=== PATIENT | female | born 1930 | race Caucasian/White ===

== ENCOUNTER 2016-08-20 12:50 | Outpatient (CLI) | payer MEDICARE, OTHER | END 2016-08-20 12:51 | disposition home or self-care (01) | DX: M16.0 Bilateral primary osteoarthritis of hip (principal) ==

== ENCOUNTER 2016-08-31 12:14 | Outpatient (CLI) | payer MEDICARE, OTHER | END 2016-08-31 12:15 | disposition home or self-care (01) | DX: M16.0 Bilateral primary osteoarthritis of hip (principal); S76.311A Strain of muscle, fascia and tendon of the posterior muscle group at thigh level, right thigh, initial encounter; M51.37 Other intervertebral disc degeneration, lumbosacral region; K57.30 Diverticulosis of large intestine without perforation or abscess without bleeding; Z91.81 History of falling; R60.0 Localized edema ==

== ENCOUNTER 2016-09-17 08:29 | Outpatient (CLI) | payer MEDICARE, OTHER | END 2016-09-17 08:30 | disposition home or self-care (01) | DX: E83.119 Hemochromatosis, unspecified (principal); E03.9 Hypothyroidism, unspecified ==

== ENCOUNTER 2017-01-15 12:03 | Outpatient (CLI) | payer MEDICARE, OTHER | END 2017-01-15 12:04 | disposition critical access hospital (66) | LOC: EMS 12:03 | PROVIDERS: ATTEND Surgery | DX: S01.01XA Laceration without foreign body of scalp, initial encounter (principal); M54.5 Low back pain; R20.0 Anesthesia of skin; W01.198A Fall on same level from slipping, tripping and stumbling with subsequent striking against other object, initial encounter; Y92.009 Unspecified place in unspecified non-institutional (private) residence as the place of occurrence of the external cause | CPT/HCPCS: A0425; A0429 ==

== ENCOUNTER 2017-01-15 12:55 | Emergency (ER) | payer MEDICARE, OTHER ==
[2017-01-15 13:04] VITALS: BP 132/79
[2017-01-15] MEDS ORDERED: ACETAMINOPHEN 325 MG TABLET PO STA (13:04)
[2017-01-15] MEDS ORDERED: ACETAMINOPHEN 325 MG TABLET PO ONE (13:09)
[2017-01-15 13:38] LABS: BASOPHILS # (AUTO) 0.1 10^3/uL (0.0-0.1); BASOPHILS % (AUTO) 0.8 %; EOSINOPHILS % (AUTO) 0.5 %; HCT - HEMATOCRIT 45.5 % (37.0-47.0); LYMPHOCYTES # (AUTO) 1.2 10^3/uL (1.5-3.5); LYMPHOCYTES % (AUTO) 14.5 %; MEAN CORPUSCULAR HEMOGLOBIN 37.5 pg (27.0-31.0); MEAN CORPUSCULAR HGB CONC 35.1 g/dL (32.0-36.0); MEAN CORPUSCULAR VOLUME 106.9 fL (81.0-99.0); MEAN PLATELET VOLUME 7.7 fL (7.9-10.8); MONOCYTES # (AUTO) 1.1 10^3/uL (0.0-1.0); MONOCYTES % (AUTO) 13.1 %; NEUTROPHILS # (AUTO) 5.7 10^3/uL (1.5-6.6); NEUTROPHILS % (AUTO) 71.1 %; RED BLOOD COUNT 4.25 10^6/uL (4.20-5.40); RED CELL DISTRIBUTION WIDTH 12.9 % (12.0-15.0); UNCORRECTED WHITE BLOOD COUNT 8.1 x10^3/uL; WHITE BLOOD COUNT 8.1 x10^3/uL (4.8-10.8)
[2017-01-15 13:47] LABS: ALBUMIN/GLOBULIN RATIO 1.4 (1.0-2.2); BILIRUBIN,TOTAL 1.2 mg/dL (0.2-1.0); CALCIUM 10.9 mg/dL (8.5-10.3); CREATININE 0.7 mg/dL (0.4-1.0); MAGNESIUM 1.4 mg/dL (1.7-2.8); POTASSIUM 3.6 mmol/L (3.5-5.0); TOTAL PROTEIN 7.8 g/dL (6.7-8.2)
--- NOTE | 2017-01-15 14:13 | CT Preliminary Report ---
Exam: CT Head W/O IMPRESSION: Generalized age-related chronic changes without evidence of acute intracranial abnormalit y when compared with 02/10/2016. [facility] SITE ID: [id number]
--- NOTE | 2017-01-15 14:15 | CT Report ---
EXAM: CT HEAD EXAM DATE: 01/15/2017 01:54 PM. CLINICAL HISTORY: Fell last night, struck head. COMPARISON: 02/10/2016 TECHNIQUE: Multiaxial CT images were obtained from the foramen magnum to the vertex. IV contrast: Non e. Reformats: Coronal. In accordance with CT protocol optimization, one or more of the following dose reduction techniques w ere utilized for this exam: automated exposure control, adjustment of mA and/or KV based on patient s ize, or use of iterative reconstructive technique. FINDINGS: Parenchyma: No intraparenchymal hemorrhage. No evidence of mass, midline shift, or CT findings of acu te infarction. Hamilton-white differentiation is distinct. Extraaxial Spaces: Normal for age. No subdural or epidural collections identified. Ventricles: The ventricles and cortical sulci are enlarged, consistent with age-related tissue loss. Sinuses: Imaged paranasal sinuses, orbits, and mastoids show no significant abnormality. Bones: No evidence of fracture or calvarial defect. Other: Diffuse chronic microangiopathic white matter changes are evident. IMPRESSION: Generalized age-related chronic changes without evidence of acute intracranial abnormalit y when compared with 02/10/2016. [facility] Referring Provider Line: [phone] SITE ID: [id number]
--- NOTE | 2017-01-15 14:24 | CT Preliminary Report ---
Exam: CT Cervical Spine W/O IMPRESSION: Multilevel degenerative and postsurgical change cervical spine without evidence of acute fracture, acute malalignment, or prevertebral soft tissue swelling when compared with 02/10/2016. [facility] SITE ID: [id number]
--- NOTE | 2017-01-15 14:26 | CT Report ---
EXAM: CT CERVICAL SPINE WITHOUT CONTRAST DATE: 01/15/2017 01:54 PM HISTORY: Fell last night with some finger numbness. COMPARISONS: 02/10/2016 TECHNIQUE: Thin-section axial images were acquired of the cervical spine without contrast. Post-proce ssing: Coronal and sagittal reformats. Other: None. In accordance with CT protocol optimization, one or more of the following dose reduction techniques w ere utilized for this exam: automated exposure control, adjustment of mA and/or KV based on patient s ize, or use of iterative reconstructive technique. FINDINGS: Alignment: Normal. No scoliosis or spondylolisthesis. Bones: No acute fracture or bone lesion. Interspace Levels/Facets: C1-C2 through C7-T1: Status post anterior interbody C4-C5 fusion with plate and screw stabilization. Advanced disk space narrowing C5-C6 and C6-C7. Multilevel degenerative facet joint arthropathy. Musculature: Normal. No fatty atrophy. Other: The paravertebral and prevertebral soft tissues are normal. IMPRESSION: Multilevel degenerative and postsurgical change cervical spine without evidence of acute fracture, acute malalignment, or prevertebral soft tissue swelling when compared with 02/10/2016. [facility] Referring Provider Line: [phone] SITE ID: [id number]
--- NOTE | 2017-01-15 14:31 | CT Preliminary Report ---
Exam: CT Pelvis W/O IMPRESSION: 1. Mild bilateral hip osteoarthritis. 2. No acute fracture identified. [facility] SITE ID: [id number]
--- NOTE | 2017-01-15 14:55 | CT Report ---
EXAM: CT BONY PELVIS WITHOUT CONTRAST EXAM DATE: 01/15/2017 01:54 PM. CLINICAL HISTORY: Fell last night with sacral/tailbone pain. COMPARISON: CT 10/29/2014. TECHNIQUE: Thin-section axial images were acquired of the pelvis without contrast. Post-processing: C oronal and sagittal reformats. Other: None. In accordance with CT protocol optimization, one or more of the following dose reduction techniques w ere utilized for this exam: automated exposure control, adjustment of mA and/or KV based on patient s ize, or use of iterative reconstructive technique. FINDINGS: Bones and Articular Surfaces: Mild bilateral hip joint space narrowing with marginal osteophyte forma tion. There is some degree of chondrocalcinosis in the bilateral hip joints. Sacroiliac joints demons trate mild degree of subcortical sclerosis and tiny marginal osteophytes. No acute fracture identifie d. Sacrum and coccyx appear intact. Severe L4-L5 degenerative facet arthropathy with grade 1 spondylo listhesis partially visualized. Soft Tissues: Moderate enthesophyte formation adjacent to the ischial tuberosities, left greater than right greater trochanters. Irregular dystrophic calcifications involving the right greater than left proximal hamstrings musculature. No additional musculotendinous abnormality. Miscellaneous: 2.3 cm gallstone partially visualized. Dense calcified plaque in the iliac vessels. Si gmoid diverticulosis without diverticulitis. IMPRESSION: 1. Mild bilateral hip osteoarthritis. 2. No acute fracture identified. [facility] Referring Provider Line: [phone] SITE ID: [id number]
--- NOTE | 2017-01-15 15:04 | ED Physician Documentation ---
PD HPI Fall - Stated complaint Stated Complaint: GLF - Chief complaint Chief Complaint: General - History obtained from History obtained from: Patient, EMS - History of Present Illness Mechanism of injury: Slipped (she says she fell down beside bed when got up to close window. denies feeling dizzy nor lightheaded prior to the fall. Struck back of head and tailbone area.) Fall distance: Standing position Where injury occurred: Home Timing - onset: Last night Injury(ies) location: Head, Neck, Back (tailbone sacral area), Other (both medial knees with bruising but no bony tenderness.) Associated symptoms: Other (scalp laceration that had a lot pool of blood on carpet this morning. She says she got herself back up by climbing with knees and got bruised medial knees as well, but not hurting to touch nor walk.). No: LOC, AMS Worsens with: Movement, Palpation Contributing factors: Intoxicated (denies excess alcohol use, but does have smell of alcohol on breath with last intake stated about midnight or so. Denies intoxication contributing to the fall.). No: Anticoagulated Recently seen: Not recently seen Review of Systems Constitutional: denies: Fever, Chills Throat: denies: Dental pain / toothache, Sore throat Cardiac: denies: Chest pain / pressure, Palpitations Respiratory: denies: Dyspnea, Cough Musculoskeletal: reports: Back pain (sacral/tailbone area) Neurologic: reports: Headache, Head injury (occiput area). denies: Focal weakness, Numbness, Difficulty speaking PD PAST MEDICAL HISTORY - Past Medical History Past Medical History: Yes Cardiovascular: Hypertension Respiratory: None Neuro: None Endocrine/Autoimmune: None GI: Diverticulitis MEDICAL CHEMIST: Ectopic , Ovarian cysts : None HEENT: None Musculoskeletal: Osteoarthritis, Gout Derm: None - Past Surgical History Past Surgical History: Yes General: Appendectomy Ortho: Spine surgery /MEDICAL CHEMIST: Hysterectomy, Oophrectomy HEENT: Tonsil/Adenoidectomy - Present Medications Home Medications: Ambulatory Orders Medication Instructions Recorded Confirmed Levothyroxine Sodium [Synthroid] 112 mcg PO DAILY 03/31/13 01/13/17 Metoprolol Succinate [Toprol Xl] 25 mg PO DAILY 03/31/13 01/13/17 Multivitamin [Multivitamins] 1 each PO DAILY 03/31/13 01/13/17 amLODIPine [Norvasc] 10 mg PO DAILY 03/31/13 01/13/17 Allopurinol 100 mg PO DAILY 09/27/13 01/13/17 Aspirin [Aspir 81] 325 mg PO DAILY 01/24/14 01/13/17 Zolpidem Tartrate [Zolpidem 5 mg PO DAILY PRN 02/10/16 01/13/17 Tartrate] Cholecalciferol (Vitamin D3) 1,000 unit PO DAILY 05/27/16 01/13/17 [Vitamin D3] Magnesium Citrate 135 mg PO DAILY 05/27/16 01/13/17 Potassium Chloride 10 meq PO DAILY 05/27/16 01/13/17 - Allergies Allergies/Adverse Reactions: Allergies Allergy/AdvReac Type Severity Reaction Status Date / Time lisinopril Allergy Respiratory Verified 01/15/17 13:08 Penicillins Allergy Rash Verified 01/15/17 13:08 atenolol AdvReac Dizziness Verified 01/15/17 13:08 sertraline HCl * AdvReac Dizziness Verified 01/15/17 13:08 [From Zoloft] - Social History Does the pt smoke?: Yes Smoking Status: Current every day smoker Does the pt drink ETOH?: Yes Does the pt have substance abuse?: No - Family History Family history: reports: Non contributory - Immunizations Immunizations are current?: Yes PD ED PE NORMAL - Vitals Vital signs reviewed: Yes - General General: No acute distress, Well developed/nourished, Other - HEENT HEENT: EOMI (d), Pharynx benign, Other (occiput with 1.5 cm laceration that looks like it was st) - Neck Neck: Supple, no meningeal sign - Cardiac Cardiac: RRR, No murmur - Respiratory Respiratory: Clear bilaterally - Abdomen Abdomen: Normal bowel sounds, Soft, Non tender - Female Female : Deferred - Rectal Rectal: Deferred - Back Back: No CVA TTP, Other (tender in lower sacral/tailbone area without deformity. ) - Extremities Extremities: No edema, No calf tenderness / cord - Neuro Neuro: Alert and oriented X 3, No motor deficit, No sensory deficit Results - Vitals Vitals: Oxygen O2 Source Room air - Labs Labs: Laboratory Tests 01/15/17 01/15/17 13:18 13:18 WBC 8.1 RBC 4.25 Hgb 16.0 Hct 45.5 MCV 106.9 H MCH 37.5 H MCHC 35.1 RDW 12.9 Plt Count 177 MPV 7.7 L Neut # 5.7 Lymph # 1.2 L Hartley # 1.1 H Eos # 0.0 Baso # 0.1 Absolute Nucleated RBC 0.00 Nucleated RBCs 0.0 Sodium 139 Potassium 3.6 Chloride 101 Carbon Dioxide 23 Anion Gap 15.0 H BUN 13 Creatinine 0.7 Estimated GFR (MDRD) 80 L Glucose 133 H Calcium 10.9 H Magnesium 1.4 L Total Bilirubin 1.2 H AST 88 H ALT 39 Alkaline Phosphatase 92 Total Creatine Kinase 257 Total Protein 7.8 Albumin 4.5 Globulin 3.3 Albumin/Globulin Ratio 1.4 Lipase 44 Ethyl Alcohol 28.4 - Rads (name of study) scans Head, enck, pelvis Radiology: Prelim report reviewed (all negative for fractures. ) Procedures - Laceration (location) occiput Length in cm: 1.5 Wound type: Linear Neurovascular status: Sensory intact, Motor intact, Other (mild bleeding at time of cleaning) Anesthesia: Lidocaine 1% with epi Wound Preparation: Irrigated copiously NS Skin layer closure: Nylon, Interrupted, Size #-0 - enter number (4), Sutures - enter # (3) Other: Patient tolerated well, No complications, Neurovascular intact, Dressing applied, Tetanus UTD Complexity: Simple PD MEDICAL DECISION MAKING - ED course Complexity details: reviewed results, re-evaluated patient (looks okay. No fractures. Scalp wound sutured. ), considered differential, d/w patient Departure - Departure Disposition: 01 Home, Self Care Clinical Impression: Fall from slip, trip, or stumble Qualifiers: Encounter type: initial encounter Qualified Code(s): W01.0XXA - Fall on same level from slipping, tripping and stumbling without subsequent striking against object, initial encounter Scalp laceration Qualifiers: Encounter type: initial encounter Qualified Code(s): S01.01XA - Laceration without foreign body of scalp, initial encounter Sacral contusion Qualifiers: Encounter type: initial encounter Qualified Code(s): S30.0XXA - Contusion of lower back and pelvis, initial encounter Traumatic ecchymosis of knee Qualifiers: Encounter type: initial encounter Laterality: unspecified laterality Qualified Code(s): S80.00XA - Contusion of unspecified knee, initial encounter Condition: Stable Record reviewed to determine appropriate education?: Yes Instructions: ED Laceration Scalp Stitch Or Stap, ED Contusion Sacrum Coccyx Follow-Up: Gus Ocasio MD [Primary Care Provider] - Comments: It is okay to wash and shower. Clean off the wound twice a day with soap and water, or peroxide and water. Apply some antibiotic ointment to it to keep it moist. Also to watch for signs of infection such as purulence, redness or increasing pain. Return to your primary care or the ER at the specified time for suture removal. Suture removal in 8-10 days. Tylenol 4 times a day as needed for pain. There is no bleeding inside the head vault and no signs of fractures of your neck or pelvis. Discharge Date/Time: 01/15/17 15:30
== END 2017-01-15 15:30 | disposition home or self-care (01) ==
LOC: EDUNIT# → ED 12:55
DX: S01.01XA Laceration without foreign body of scalp, initial encounter (principal); S30.0XXA Contusion of lower back and pelvis, initial encounter; S80.00XA Contusion of unspecified knee, initial encounter; W18.30XA Fall on same level, unspecified, initial encounter; W22.8XXA Striking against or struck by other objects, initial encounter; Y92.009 Unspecified place in unspecified non-institutional (private) residence as the place of occurrence of the external cause; I10 Essential (primary) hypertension; F17.200 Nicotine dependence, unspecified, uncomplicated; Z79.82 Long term (current) use of aspirin
CPT/HCPCS: 12001; 36415; 70450; 72125; 72192; 80053; 82550; 83690; 83735; 85025; 99283; A9270; G0480; 80320

== ENCOUNTER 2017-03-06 08:00 | Outpatient (CLI) | payer MEDICARE, OTHER ==
[2017-03-06 19:50] LABS: ALBUMIN/GLOBULIN RATIO 1.3 (1.0-2.2); BILIRUBIN,TOTAL 0.9 mg/dL (0.2-1.0); CALCIUM 9.7 mg/dL (8.5-10.3); CREATININE 0.6 mg/dL (0.4-1.0); POTASSIUM 3.8 mmol/L (3.5-5.0); TOTAL PROTEIN 7.7 g/dL (6.7-8.2)
== END 2017-03-06 08:01 | disposition home or self-care (01) ==
LOC: LAB.F 08:00
PROVIDERS: ATTEND Internal Medicine
DX: I48.2 Chronic atrial fibrillation (principal); I10 Essential (primary) hypertension; E83.119 Hemochromatosis, unspecified
CPT/HCPCS: 36415; 80053

== ENCOUNTER 2017-06-10 08:00 | Outpatient (CLI) | payer MEDICARE, OTHER | END 2017-06-10 08:01 | disposition home or self-care (01) | LOC: LAB.F 08:00 | PROVIDERS: ATTEND Internal Medicine Cardiovascular Disease | DX: E78.5 Hyperlipidemia, unspecified (principal); I10 Essential (primary) hypertension | CPT/HCPCS: 80061; 81599; 82565; 84450; 84520 ==

== ENCOUNTER 2017-06-11 07:44 | Outpatient (CLI) | payer MEDICARE, OTHER ==
[2017-06-11 11:13] LABS: BUN - BLOOD UREA NITROGEN 9 mg/dL (6-20); CHOL/HDL RATIO 2.5 (<4.4); CHOLESTEROL 179 mg/dL; CREATININE 0.6 mg/dL (0.4-1.0); GFR - MDRD 95 (>89); HDL CHOLESTEROL 71 mg/dL; LDL/HDL RATIO 1.3 (<4.4); TRIGLYCERIDES 95 mg/dL; VLDL CHOLESTEROL 19 mg/dL
[2017-06-11 11:34] LABS: CARBON DIOXIDE - CO2 20 mmol/L (21-32); CHLORIDE 102 mmol/L (101-111); POTASSIUM 3.8 mmol/L (3.5-5.0); SODIUM 136 mmol/L (135-145)
[2017-06-14 13:32] LABS: TEST RESULT REPORT
== END 2017-06-11 07:45 | disposition home or self-care (01) ==
LOC: LAB.F 07:44
PROVIDERS: ATTEND Internal Medicine Cardiovascular Disease
DX: E78.5 Hyperlipidemia, unspecified (principal); I10 Essential (primary) hypertension
CPT/HCPCS: 36415; 80051; 80061; 81599; 82172; 82565; 84450; 84520

== ENCOUNTER 2017-09-22 07:31 | Outpatient (CLI) | payer MEDICARE, OTHER ==
[2017-09-22 10:56] LABS: ALBUMIN 4.1 g/dL (3.2-5.5); ALBUMIN/GLOBULIN RATIO 1.3 (1.0-2.2); ALKALINE PHOSPHATASE 70 IU/L (42-121); ALT ALANINE AMINOTRANSFERASE 39 IU/L (10-60); AST ASPARTATE AMINOTRANSFERASE 82 IU/L (10-42); BILIRUBIN,TOTAL 1.2 mg/dL (0.2-1.0); BUN - BLOOD UREA NITROGEN 12 mg/dL (6-20); CALCIUM 9.6 mg/dL (8.5-10.3); CARBON DIOXIDE - CO2 24 mmol/L (21-32); CHLORIDE 101 mmol/L (101-111); CHOL/HDL RATIO 2.4 (<4.4); CHOLESTEROL 186 mg/dL; CREATININE 0.6 mg/dL (0.4-1.0); GFR - MDRD 95 (>89); GLUCOSE 85 mg/dL (70-100); HDL CHOLESTEROL 77 mg/dL; LDL CHOLESTEROL,CALCULATED 87 mg/dL; LDL/HDL RATIO 1.1 (<4.4); SODIUM 137 mmol/L (135-145); TOTAL PROTEIN 7.3 g/dL (6.7-8.2); VLDL CHOLESTEROL 22 mg/dL
[2017-09-22 11:05] LABS: T4 (THYROXINE) 6.18 ug/dL (6.09-12.23)
[2017-09-22 11:10] LABS: FREE T4 (FREE THYROXINE) 0.89 ng/dL (0.58-1.64)
[2017-09-22 11:15] LABS: TOTAL T3 0.95 ng/mL (0.87-1.78)
== END 2017-09-22 07:32 | disposition home or self-care (01) ==
LOC: LAB.F 07:31
PROVIDERS: ATTEND Family Medicine
DX: E03.9 Hypothyroidism, unspecified (principal); I10 Essential (primary) hypertension; E78.5 Hyperlipidemia, unspecified
CPT/HCPCS: 36415; 80053; 80061; 83721; 84436; 84439; 84443; 84480; 84482

== ENCOUNTER 2017-10-09 14:58 | Outpatient (CLI) | payer MEDICARE, OTHER ==
--- NOTE | 2017-10-10 10:55 | XRAY Report ---
THREE VIEW RIGHT FOOT: 10/09/2017 CLINICAL INDICATION: Pain. FINDINGS: AP, lateral, and oblique views of the right foot demonstrate moderate hallux valgus, with osteoarthritis. There is no evidence of acute fracture or dislocation. No radiopaque foreign body is seen in the soft tissues. IMPRESSION: MODERATE OSTEOARTHRITIS AND HALLUX VALGUS. TD: 10/10/2017 10:53
== END 2017-10-09 14:59 | disposition home or self-care (01) ==
LOC: DI.S 14:58
PROVIDERS: ATTEND Nurse Practitioner Family
DX: S99.821A Other specified injuries of right foot, initial encounter (principal); M19.071 Primary osteoarthritis, right ankle and foot; M20.11 Hallux valgus (acquired), right foot

== ENCOUNTER 2017-11-11 13:24 | Outpatient (CLI) | payer MEDICARE, OTHER | END 2017-11-11 13:25 | disposition home or self-care (01) | LOC: RT.S 13:24 | PROVIDERS: ATTEND Internal Medicine Cardiovascular Disease | DX: I48.0 Paroxysmal atrial fibrillation (principal); R00.2 Palpitations | CPT/HCPCS: 93005 ==

== ENCOUNTER 2017-11-12 07:55 | Outpatient (CLI) | payer MEDICARE, OTHER ==
[2017-11-12 11:05] LABS: CREATININE 0.7 mg/dL (0.4-1.0)
== END 2017-11-12 07:56 | disposition home or self-care (01) ==
LOC: LAB.F 07:55
PROVIDERS: ATTEND Internal Medicine Cardiovascular Disease
DX: I48.0 Paroxysmal atrial fibrillation (principal); R00.2 Palpitations
CPT/HCPCS: 36415; 80051; 82565; 84520

== ENCOUNTER 2017-12-04 13:52 | Outpatient (CLI) | payer MEDICARE, OTHER ==
[2017-12-04 18:20] LABS: CREATININE 0.6 mg/dL (0.4-1.0)
== END 2017-12-04 13:53 | disposition home or self-care (01) ==
LOC: LAB.F 13:52
PROVIDERS: ATTEND Internal Medicine Cardiovascular Disease
DX: I10 Essential (primary) hypertension (principal)
CPT/HCPCS: 36415; 80051; 82565; 84520

== ENCOUNTER 2017-12-26 07:51 | Outpatient (CLI) | payer MEDICARE, OTHER ==
[2017-12-26 12:14] LABS: CREATININE 0.5 mg/dL (0.4-1.0)
== END 2017-12-26 07:52 | disposition home or self-care (01) ==
LOC: LAB.F 07:51
PROVIDERS: ATTEND Internal Medicine Cardiovascular Disease
DX: E87.6 Hypokalemia (principal); I51.9 Heart disease, unspecified
CPT/HCPCS: 36415; 80051; 82565; 84520

== ENCOUNTER 2018-01-04 11:30 | Emergency (ER) | payer MEDICARE, OTHER ==
--- NOTE | 2018-01-04 12:33 | ED Physician Documentation ---
History of Present Illness - Stated complaint Stated Complaint: R ANKLE PX/GLF - Chief complaint Chief Complaint: Ext Problem - History obtained from History obtained from: Patient, Family - History of Present Illness Timing: Last night Pain level max: 4 Pain level now: 3 Improved by: rest Worsened by: movement - Additonal information Additional information: Patient is an 87-year-old female who states that she fell last night and injured her right lower extremity. States unable to bear weight today. Came in for evaluation. Denies pain anywhere other than her right ankle. No head injury. No headache. No neck or back pain. No abdominal pain. No chest pain. Review of Systems Constitutional: denies: Fever, Chills GI: denies: Nausea, Vomiting, Diarrhea Skin: denies: Rash Musculoskeletal: denies: Neck pain, Back pain Neurologic: denies: Headache PD PAST MEDICAL HISTORY - Past Medical History Cardiovascular: Hypertension Respiratory: None Endocrine/Autoimmune: None GI: Diverticulitis HONEYCOMB DECAPPER: Ectopic , Ovarian cysts : None HEENT: None Musculoskeletal: Osteoarthritis, Gout Derm: None - Past Surgical History Past Surgical History: Yes General: Appendectomy Ortho: Spine surgery /HONEYCOMB DECAPPER: Hysterectomy, Oophrectomy HEENT: Tonsil/Adenoidectomy - Present Medications Home Medications: Ambulatory Orders Medication Instructions Recorded Confirmed Levothyroxine Sodium [Synthroid] 112 mcg PO DAILY 03/31/13 07/07/17 Metoprolol Succinate [Toprol Xl] 25 mg PO DAILY 03/31/13 07/07/17 Multivitamin [Multivitamins] 1 each PO DAILY 03/31/13 07/07/17 amLODIPine [Norvasc] 10 mg PO DAILY 03/31/13 07/07/17 Allopurinol 100 mg PO DAILY 09/27/13 07/07/17 Aspirin [Aspir 81] 325 mg PO DAILY 01/24/14 07/07/17 Zolpidem Tartrate [Zolpidem 5 mg PO DAILY PRN 02/10/16 07/07/17 Tartrate] Cholecalciferol (Vitamin D3) 1,000 unit PO DAILY 05/27/16 07/07/17 [Vitamin D3] Magnesium Citrate 135 mg PO DAILY 05/27/16 07/07/17 Potassium Chloride 10 meq PO DAILY 05/27/16 07/07/17 - Allergies Allergies/Adverse Reactions: Allergies Allergy/AdvReac Type Severity Reaction Status Date / Time lisinopril Allergy Respiratory Verified 01/15/17 13:08 Penicillins Allergy Rash Verified 01/15/17 13:08 atenolol AdvReac Dizziness Verified 01/15/17 13:08 sertraline HCl * AdvReac Dizziness Verified 01/15/17 13:08 [From Zoloft] - Social History Does the pt smoke?: Yes Smoking Status: Current every day smoker Does the pt drink ETOH?: Yes Does the pt have substance abuse?: No - Immunizations Immunizations are current?: Yes PD ED PE NORMAL - Vitals Vital signs reviewed: Yes - General General: Alert and oriented X 3 - HEENT HEENT: Atraumatic, PERRL, Moist mucous membranes - Neck Neck: Supple, no meningeal sign, No bony TTP - Cardiac Cardiac: RRR - Respiratory Respiratory: No respiratory distress, Clear bilaterally - Abdomen Abdomen: Soft, Non tender, Non distended - Back Back: No spinal TTP - Derm Derm: Warm and dry, No rash - Extremities Extremities: Other (TTP R ankle and foot. diffuse STS and bruising. NVI. 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, No motor deficit, No sensory deficit Eye Opening: Spontaneous Motor: Obeys Commands Verbal: Oriented GCS Score: 15 - Psych Psych: Normal mood, Normal affect Results - Vitals Vitals: Vital Signs - 24 hr 01/04/18 01/04/18 01/04/18 11:34 11:48 13:40 Temperature 36.6 C Heart Rate 87 89 88 Respiratory 18 12 12 Rate Blood Pressure 117/37 L 121/78 148/77 H O2 Saturation 98 97 95 Oxygen O2 Source Room air - EKG (time done) 1146 Rate: Rate (enter#) (92) Rhythm: Paced - Rads (name of study) R foot xray Radiology: Prelim report reviewed, EMP read contemporaneously, See rad report ( normal) R ankle xray Radiology: Prelim report reviewed, EMP read contemporaneously, See rad report ( Distal fibula fracture) PD MEDICAL DECISION MAKING - ED course Complexity details: reviewed results, re-evaluated patient, considered differential, d/w patient, d/w family (son), d/w pre owned sales consultant ED course: Patient is an 87 year old female s/p fall at home. R distal fibula fracture on xray. NVI. Discussed with Dr. Hill, orthopedics and recommends walking boot and walker. Patient is tolerating this well. declines pain meds here or for home. Patient counseled regarding signs and symptoms for which I believe and urgent re -evaluation would be necessary. Patient with good understanding of and agreement to plan and is comfortable going home at this time This document was made in part using voice recognition software. While efforts are made to proofread this document, sound alike and grammatical errors may occur. - Sepsis Event Vital Signs: Vital Signs - 24 hr 01/04/18 01/04/18 01/04/18 11:34 11:48 13:40 Temperature 36.6 C Heart Rate 87 89 88 Respiratory 18 12 12 Rate Blood Pressure 117/37 L 121/78 148/77 H O2 Saturation 98 97 95 Oxygen O2 Source Room air Departure - Departure Disposition: 01 Home, Self Care Clinical Impression: Fibula fracture Qualifiers: Encounter type: initial encounter Fibula location: lateral malleolus Fracture type: closed Fracture alignment: nondisplaced Laterality: right Qualified Code(s ): S82.64XA - Nondisplaced fracture of lateral malleolus of right fibula, initial encounter for closed fracture Condition: Good Instructions: ED Fx Lower Ext Follow-Up: [facility] [Provider Group] - Within 1 week Parth Estes MD [Primary Care Provider] - Within 1 week Comments: Stay in the boot and use the walker at all times. Return if you worsen. You can use motrin or tylenol as needed for pain. Discharge Date/Time: 01/04/18 13:56
[2018-01-04 13:41] VITALS: BP 148/77
--- NOTE | 2018-01-05 09:11 | XRAY Report ---
Procedure Date: 01/04/2018 Accession Number: [id number] / [id number] Procedure: XR - Foot 3 View RT CPT Code: FULL RESULT: EXAM: RIGHT FOOT RADIOGRAPHY EXAM DATE: 01/04/2018 12:56 PM. CLINICAL HISTORY: Fall, foot/ankle pain. COMPARISON: 10/09/2017. TECHNIQUE: 3 views. FINDINGS: Bones: Distal fibular fracture as described on the ankle radiographs. No additional fracture. Joints: Great MTP joint space narrowing and productive change is similar. Stable degenerative changes of the midfoot. No subluxations. Soft Tissues: No focal soft tissue swelling. IMPRESSION: Negative right foot for acute fracture. Distal fibula fracture as described on the ankle radiographs. [facility]
--- NOTE | 2018-01-05 09:11 | XRAY Report ---
Procedure Date: 01/04/2018 Accession Number: [id number] / [id number] Procedure: XR - Ankle 3 View RT CPT Code: FULL RESULT: EXAM: RIGHT ANKLE RADIOGRAPHY EXAM DATE: 01/04/2018 12:56 PM. CLINICAL HISTORY: Fall, foot/ankle pain. COMPARISON: None. TECHNIQUE: 3 views. FINDINGS: Bones: There is an oblique fracture of the distal fibula above the level of the tibial plafond. No significant displacement. No additional fracture. Joints: No effusion. No subluxations. The ankle mortise is normally aligned. Soft Tissues: Lateral soft tissue swelling. IMPRESSION: Nondisplaced distal fibula fracture. [facility]
== END 2018-01-04 13:56 | disposition home or self-care (01) ==
LOC: ED 11:30
DX: S82.64XA Nondisplaced fracture of lateral malleolus of right fibula, initial encounter for closed fracture (principal); I10 Essential (primary) hypertension; Z79.82 Long term (current) use of aspirin; F17.200 Nicotine dependence, unspecified, uncomplicated; X50.1XXA Overexertion from prolonged static or awkward postures, initial encounter; W18.39XA Other fall on same level, initial encounter; Y92.009 Unspecified place in unspecified non-institutional (private) residence as the place of occurrence of the external cause
CPT/HCPCS: 93005; 99283

== ENCOUNTER 2018-04-08 12:56 | Outpatient (CLI) | payer MEDICARE, OTHER | END 2018-04-08 12:57 | disposition short-term general hospital (02) | LOC: EMS 12:56 | PROVIDERS: ATTEND Surgery | DX: R07.89 Other chest pain (principal); M25.512 Pain in left shoulder | CPT/HCPCS: A0425; A0427 ==

== ENCOUNTER 2018-04-14 13:04 | Outpatient (CLI) | payer MEDICARE, OTHER | END 2018-04-14 13:05 | disposition home or self-care (01) | LOC: LAB.F 13:04 | PROVIDERS: ATTEND Family Medicine | DX: D69.6 Thrombocytopenia, unspecified (principal) | CPT/HCPCS: 36415; 85049 ==

== ENCOUNTER 2018-10-26 15:18 | Outpatient (CLI) | payer MEDICARE, OTHER ==
[2018-10-26 18:44] LABS: ALBUMIN 3.7 g/dL (3.2-5.5); CALCIUM 10.6 mg/dL (8.5-10.3); TOTAL PROTEIN 7.4 g/dL (6.7-8.2)
[2018-10-26 18:48] LABS: BASOPHILS # (AUTO) 0.1 10^3/uL (0.0-0.1); BASOPHILS % (AUTO) 0.9 %; EOSINOPHILS # (AUTO) 0.1 10^3/uL (0.0-0.7); EOSINOPHILS % (AUTO) 1.3 %; HGB - HEMOGLOBIN 14.2 g/dL (12.0-16.0); LYMPHOCYTES # (AUTO) 1.9 10^3/uL (1.5-3.5); LYMPHOCYTES % (AUTO) 31.9 %; MEAN CORPUSCULAR HEMOGLOBIN 37.2 pg (27.0-31.0); MEAN CORPUSCULAR HGB CONC 33.8 g/dL (32.0-36.0); MEAN PLATELET VOLUME 8.3 fL (7.9-10.8); MONOCYTES # (AUTO) 0.8 10^3/uL (0.0-1.0); MONOCYTES % (AUTO) 13.1 %; NEUTROPHILS # (AUTO) 3.2 10^3/uL (1.5-6.6); NEUTROPHILS % (AUTO) 52.8 %; PLT - PLATELET COUNT 160 10^3/uL (130-450); RED CELL DISTRIBUTION WIDTH 13.5 % (12.0-15.0); WHITE BLOOD COUNT 6.1 x10^3/uL (4.8-10.8)
== END 2018-10-26 15:19 | disposition home or self-care (01) ==
LOC: LAB.F 15:18
PROVIDERS: ATTEND Nurse Practitioner Family
DX: R30.0 Dysuria (principal)
CPT/HCPCS: 36415; 80053; 85025

== ENCOUNTER 2018-10-27 08:00 | Outpatient (CLI) | payer MEDICARE, OTHER | END 2018-10-27 23:59 | disposition home or self-care (01) | LOC: LAB.R 08:00 | PROVIDERS: ATTEND Nurse Practitioner Family | DX: R30.0 Dysuria (principal) | CPT/HCPCS: 87086; 87181 ==

== ENCOUNTER 2018-11-02 08:25 | Outpatient (CLI) | payer MEDICARE, OTHER ==
--- NOTE | 2018-11-02 12:52 | Ultrasound Report ---
Reason: URINARY TRACT INFECTION ,SITE NOT SPECIFIED Procedure Date: 11/02/2018 Accession Number: [id number] / [id number] Procedure: US - Retroperitoneal CPT Code: FULL RESULT: EXAM: RENAL ULTRASOUND EXAM DATE: 11/02/2018 08:51 AM. CLINICAL HISTORY: Urinary tract infection, site not specified. COMPARISON: None. TECHNIQUE: Real-time scanning was performed with static images obtained. FINDINGS: Right Kidney: 10.5 cm. Normal echotexture with no stones, contour-deforming masses, or hydronephrosis. Left Kidney: 11.1 cm. A simple cyst measuring up to 3 cm was noted. Normal echotexture with no stones, solid masses, or hydronephrosis. Bladder: The right ureteral jet is clearly seen. There is the suggestion of presence of the left ureteral jet, less certain. The patient had already voided. Postvoid volume was 15 mL. Other: None. IMPRESSION: No significant postvoid residual and no urinary obstruction. [facility]
--- NOTE | 2018-11-02 13:33 | XRAY Report ---
Reason: URINARY TRACT INFECTION,SITE NOT SPECIFIED Procedure Date: 11/02/2018 Accession Number: [id number] / [id number] Procedure: XR - Abdomen 1 View X-Ray CPT Code: 11985 FULL RESULT: EXAM: ABDOMEN RADIOGRAPHY EXAM DATE: 11/02/2018 09:28 AM. CLINICAL HISTORY: Urinary tract infection, site not specified. COMPARISON: XR ACUTE ABDOMEN SERIES 10/22/2009 2:37 PM ABDOMEN/PELVIS W/O 10/29/2014 12:10 PM. TECHNIQUE: 1 view. FINDINGS: Bowel Gas Pattern: No bowel obstruction. Small to moderate volume of stool in the colon. Calcification projected over the left renal hilum again seen consistent with a vascular calcification. No calcifications are seen to suggest a ureteral or bladder calculus. Other: Lung bases are clear. Vascular calcifications. Degenerative changes. Dextroscoliosis of the lumbar spine. IMPRESSION: 1. No radiographic evidence of obstructing calculi. 2. No bowel obstruction. 3. Small to moderate volume of stool in the colon. [facility]
== END 2018-11-02 08:26 | disposition home or self-care (01) ==
LOC: DI 08:25
PROVIDERS: ATTEND Nurse Practitioner Family
DX: N39.0 Urinary tract infection, site not specified (principal)
CPT/HCPCS: 74018; 76770

== ENCOUNTER 2018-12-07 08:08 | Outpatient (CLI) | payer MEDICARE, OTHER ==
[2018-12-07 10:53] LABS: CALCIUM 10.7 mg/dL (8.5-10.3); CREATININE 0.8 mg/dL (0.4-1.0)
== END 2018-12-07 08:09 | disposition home or self-care (01) ==
LOC: LAB.F 08:08
PROVIDERS: ATTEND Internal Medicine Cardiovascular Disease
DX: R06.02 Shortness of breath (principal)
CPT/HCPCS: 36415; 80048

== ENCOUNTER 2018-12-21 08:07 | Outpatient (CLI) | payer MEDICARE, OTHER ==
[2018-12-21 10:49] LABS: CREATININE 1.1 mg/dL (0.4-1.0)
== END 2018-12-21 08:08 | disposition home or self-care (01) ==
LOC: LAB.F 08:07
PROVIDERS: ATTEND Physician Assistant Medical
DX: I50.33 Acute on chronic diastolic (congestive) heart failure (principal)
CPT/HCPCS: 36415; 80051; 82565; 84520

== ENCOUNTER 2019-04-27 12:02 | Outpatient (CLI) | payer MEDICARE, OTHER ==
[2019-04-27 17:24] LABS: BASOPHILS % (AUTO) 0.6 %; EOSINOPHILS # (AUTO) 0.1 10^3/uL (0.0-0.7); EOSINOPHILS % (AUTO) 1.3 %; HGB - HEMOGLOBIN 12.7 g/dL (12.0-16.0); LYMPHOCYTES # (AUTO) 1.2 10^3/uL (1.5-3.5); LYMPHOCYTES % (AUTO) 19.6 %; MEAN CORPUSCULAR HEMOGLOBIN 35.3 pg (27.0-31.0); MEAN CORPUSCULAR HGB CONC 33.9 g/dL (32.0-36.0); MEAN CORPUSCULAR VOLUME 104.2 fL (81.0-99.0); MEAN PLATELET VOLUME 9.4 fL (7.9-10.8); MONOCYTES # (AUTO) 0.8 10^3/uL (0.0-1.0); MONOCYTES % (AUTO) 11.9 %; NEUTROPHILS # (AUTO) 4.2 10^3/uL (1.5-6.6); NEUTROPHILS % (AUTO) 66.3 %; PLT - PLATELET COUNT 157 10^3/uL (130-450); RED CELL DISTRIBUTION WIDTH 15.7 % (12.0-15.0); WHITE BLOOD COUNT 6.3 x10^3/uL (4.8-10.8)
[2019-04-27 17:46] LABS: ALBUMIN 3.7 g/dL (3.2-5.5); ALBUMIN/GLOBULIN RATIO 0.9 (1.0-2.2); BILIRUBIN,TOTAL 2.5 mg/dL (0.2-1.0); CALCIUM 9.7 mg/dL (8.5-10.3); CREATININE 1.9 mg/dL (0.4-1.0); TOTAL PROTEIN 7.6 g/dL (6.7-8.2)
== END 2019-04-27 12:03 | disposition home or self-care (01) ==
LOC: LAB.S 12:02
PROVIDERS: ATTEND Internal Medicine
DX: I50.9 Heart failure, unspecified (principal); E03.9 Hypothyroidism, unspecified
CPT/HCPCS: 36415; 80053; 84443; 85025

== ENCOUNTER 2019-05-19 12:09 | Outpatient (CLI) | payer MEDICARE, OTHER ==
[2019-05-19 17:52] LABS: MEAN CORPUSCULAR HEMOGLOBIN 35.6 pg (27.0-31.0); MEAN CORPUSCULAR HGB CONC 34.9 g/dL (32.0-36.0); MEAN CORPUSCULAR VOLUME 102.2 fL (81.0-99.0); MEAN PLATELET VOLUME 10.3 fL (7.9-10.8); RED BLOOD COUNT 3.65 10^6/uL (4.20-5.40); RED CELL DISTRIBUTION WIDTH 15.7 % (12.0-15.0)
[2019-05-19 18:22] LABS: CREATININE 2.2 mg/dL (0.4-1.0)
== END 2019-05-19 12:10 | disposition home or self-care (01) ==
LOC: LAB.S 12:09
PROVIDERS: ATTEND Internal Medicine
DX: I50.9 Heart failure, unspecified (principal)
CPT/HCPCS: 36415; 80048; 83735; 85027

== ENCOUNTER 2019-06-02 12:42 | Outpatient (CLI) | payer MEDICARE, OTHER | END 2019-06-02 12:43 | disposition E | LOC: EMS 12:42 | PROVIDERS: ATTEND Surgery ==